=== PATIENT | male | born 1990 | race Two or more races ===

== ENCOUNTER 2019-09-21 10:24 | Emergency (ER) | payer MEDICAID ==
[~2019-09-21] VITALS: Ht 190.5 cm; Wt 79.0 kg
[2019-09-21 10:53] VITALS: BP 105/68
== END 2019-09-21 11:50 | disposition home or self-care (01) ==
LOC: ER 10:34
DX: J31.0 Chronic rhinitis (principal); A69.20 Lyme disease, unspecified; T78.40XA Allergy, unspecified, initial encounter; X58.XXXA Exposure to other specified factors, initial encounter
CPT/HCPCS: 99283

== ENCOUNTER 2019-11-22 01:38 | Emergency (ER) | payer SELFPAY ==
[~2019-11-22] VITALS: Ht 188 cm; Wt 78.0 kg
[2019-11-22 02:13] VITALS: BP 106/84
[2019-11-22] MEDS ORDERED: ONDANSETRON 4MG ODT PO STA (06:56)
[2019-11-22] MEDS ORDERED: NAPROXEN 250MG TABLET PO ONE (07:00)
== END 2019-11-22 07:42 | disposition left against medical advice (07) ==
LOC: ER 01:38
DX: R51 Headache (principal)
CPT/HCPCS: 99283; Q0162